=== PATIENT | male | born 1985 | race Caucasian/White ===

== ENCOUNTER → 2023-07-25 | Emergency (ER) | payer OTHER ==
[~2023-07-25] VITALS: Ht 170.2 cm; Wt 78.9 kg
[~2023-07-25] MED LIST: IBUPROFEN 600 MG TABLET ONE; NAPR-1164 PO
[2023-07-25] MEDS: IBUPROFEN 600 MG TABLET PO ONE (14:30)
[2023-07-25 15:32] VITALS: BP 132/78; TEMP 98.2; O2SAT 99
== END | disposition home or self-care (01) ==
LOC: ER 13:43
DX: S40.012A Contusion of left shoulder, initial encounter (principal); S80.12XA Contusion of left lower leg, initial encounter; S80.11XA Contusion of right lower leg, initial encounter; V43.52XA Car driver injured in collision with other type car in traffic accident, initial encounter; Y93.89 Activity, other specified; Y92.488 Other paved roadways as the place of occurrence of the external cause; Y99.8 Other external cause status
CPT/HCPCS: 73030-TC; 73590-TC